=== PATIENT | female | born 1955 | race Caucasian/White ===

== ENCOUNTER 2016-06-24 11:56 | Emergency (ER) | payer SELFPAY ==
[2016-06-24] MEDS ORDERED: ASPIRIN 81 MG TABLET, CHEWABLE PO ONE (12:03)
--- NOTE | 2016-06-24 12:03 | ER Document Report ---
ED Medical Screen (RME) - General Stated Complaint: CHEST PAIN, DIZZINESS Time seen by provider: 12:00 Mode of Arrival: Ambulatory Information source: Patient Notes: 60 yo female presents to ed for dizziness since am and chest pain. Denies HTN BP 174/101. I have greeted and performed a rapid initial assessment of this patient. A comprehensive ED assessment and evaluation of the patient, analysis of test results and completion of medical decision making process will be conducted by an additional ED providers. - Related Data Allergies/Adverse Reactions: No Known Allergies Allergy (Unverified 06/24/16 11:59)
[2016-06-24 12:35] LABS: ABSOLUTE BASOPHILS # (AUTO) 0.1 10^3/uL (0.0-0.2); ABSOLUTE EOSINOPHILS # (AUTO) 0.1 10^3/uL (0.0-0.6); ABSOLUTE LYMPHOCYTES (AUTO) 2.4 10^3/uL (0.5-4.7); ABSOLUTE NEUT (AUTO) 8.4 10^3/uL (1.7-8.2); BASOPHILS % (AUTO) 0.6 % (0-2); EOSINOPHILS % (AUTO) 0.9 % (0-6); HEMATOCRIT 44.2 % (36.0-47.0); HEMOGLOBIN 14.3 g/dL (12.0-15.5); HGB HCT DIFFERENCE -1.3; LYMPHOCYTES % (AUTO) 19.9 % (13-45); MEAN CORPUSCULAR HEMOGLOBIN 26.7 pg (27.0-33.4); MEAN CORPUSCULAR HGB CONC 32.4 g/dL (32.0-36.0); MEAN CORPUSCULAR VOLUME 82 fl (80-97); MONOCYTES % (AUTO) 8.5 % (3-13); RED BLOOD COUNT 5.37 10^6/uL (3.72-5.28); RED CELL DISTRIBUTION WIDTH 14.2 % (11.5-14.0); SEGMENTED NEUTROPHILS % (AUTO) 70.1 % (42-78)
[2016-06-24 12:54] LABS: ALANINE AMINOTRANSFERASE 35 U/L (9-52); ALBUMIN 4.2 g/dL (3.5-5.0); ALKALINE PHOSPHATASE 84 U/L (38-126); ANION GAP 11 (5-19); ASPARTATE AMINO TRANSFERASE 21 U/L (14-36); BILIRUBIN,TOTAL 0.6 mg/dL (0.2-1.3); BLOOD UREA NITROGEN 14 mg/dL (7-20); CALCIUM 9.7 mg/dL (8.4-10.2); CARBON DIOXIDE 28 mmol/L (22-30); CHLORIDE 104 mmol/L (98-107); CREATINE KINASE 52 U/L (30-135); CREATININE RESULT 0.67 mg/dL (0.52-1.25); GLUCOSE 120 mg/dL (75-110); MAGNESIUM 2.1 mg/dL (1.6-2.3); POTASSIUM 3.8 mmol/L (3.6-5.0); SODIUM 142.9 mmol/L (137-145); TOTAL PROTEIN 7.5 g/dL (6.3-8.2)
[2016-06-24 13:07] LABS: CREATINE KINASE MB 1.35 ng/mL (<4.55)
[2016-06-24 13:11] LABS: TROPONIN I < 0.012 ng/mL
--- NOTE | 2016-06-24 15:47 | ER Document Report ---
ED General - General Chief Complaint: Chest Pain > 30 Stated Complaint: CHEST PAIN, DIZZINESS Mode of Arrival: Ambulatory Notes: The patient is a 60-year-old female, past medical history hypertension, smoking , presents with 3 weeks of anterior chest pain when she coughs, rhinorrhea and 1 day of nausea. Her had similar symptoms. She did not get flu shot this year. She vomited once this morning. She took her blood pressure was 180/ 100 before vomiting. She is to take blood pressure medications, but stopped after she lost her insurance and does not her primary care physician. She denies back pain, shortness of breath, current chest pain, abdominal pain, fevers, numbness, tingling or blurry vision. TRAVEL OUTSIDE OF THE [place] IN LAST 30 DAYS: No - Related Data Allergies/Adverse Reactions: No Known Allergies Allergy (Unverified 06/24/16 11:59) Past Medical History - General Information source: Patient - Social History Smoking Status: Current Every Day Smoker Chew tobacco use (# tins/day): No Frequency of alcohol use: None Drug Abuse: None Family History: Reviewed & Not Pertinent Patient has suicidal ideation: No Patient has homicidal ideation: No Renal/ Medical History: Denies: Hx Peritoneal Dialysis Review of Systems - Review of Systems Notes: REVIEW OF SYSTEMS: CONSTITUTIONAL: -fevers, -chills EENT: -eye pain, -difficulty swallowing, -nasal congestion CARDIOVASCULAR: +chest pain, -syncope. RESPIRATORY: +cough, -SOB GASTROINTESTINAL: -abdominal pain, -nausea, -vomiting, -diarrhea GENITOURINARY: -dysuria, -hematuria MUSCULOSKELETAL: -back pain, -neck pain SKIN: -rash or skin lesions. HEMATOLOGIC: -easy bruising or bleeding. LYMPHATIC: -swollen, enlarged glands. NEUROLOGICAL: -altered mental status or loss of consciousness, -headache, - neurologic symptoms PSYCHIATRIC: -anxiety, -depression. ALL OTHER SYSTEMS REVIEWED AND NEGATIVE. Physical Exam - Vital signs Vitals: Temp Pulse Resp BP Pulse Ox 97.5 F 100 14 174/101 H 96 06/24/16 12:01 06/24/16 12:01 06/24/16 12:01 06/24/16 12:06/24/16 12:01 - Notes Notes: PHYSICAL EXAMINATION: GENERAL: Well-appearing, well-nourished and in no acute distress. HEAD: Atraumatic, normocephalic. EYES: Pupils equal round and reactive to light, extraocular movements intact, sclera anicteric, conjunctiva are normal. ENT: nares patent, oropharynx clear without exudates. Moist mucous membranes. NECK: Normal range of motion, supple without lymphadenopathy LUNGS: Breath sounds clear to auscultation bilaterally and equal. No wheezes rales or rhonchi. HEART: Regular rate and rhythm without murmurs ABDOMEN: Soft, nontender, normoactive bowel sounds. No guarding, no rebound. No masses appreciated. EXTREMITIES: Normal range of motion, no pitting or edema. No cyanosis. NEUROLOGICAL: Cranial nerves grossly intact. Normal speech, normal gait. Normal sensory, motor, and reflex exams. PSYCH: Normal mood, normal affect. SKIN: Warm, Dry, normal turgor, no rashes or lesions noted. Course - Re-evaluation Re-evalutation: Patient appears well. Her blood pressure decreased to 150/100 while in the emergency room. Since she does not have a primary care physician and has not been on her hydrochlorothiazide, will restart her hydrochlorothiazide and provide her with follow-up at the health clinic. She has a HEART score of 3 and is safe for outpatient workup of her chest pain when she coughs. Patient says she only drinks Mountain Dew and sweet tea. After drinking 2 large water bottles in the ER, she is not feeling lightheaded. Told her to continue to drink only water. Considered ACS, PE and aortic dissection, but unlikely at this time. Slight leukocytosis may be from vomiting earlier in the day. No signs of infection at this time. Will discharge home with follow-up at health clinic. Given strict return precautions and she understands. - Vital Signs Vital signs: Temp Pulse Resp BP Pulse Ox 97.5 F 100 20 174/101 H 96 06/24/16 12:01 06/24/16 12:01 06/24/16 16:02 06/24/16 12:01 06/24/16 12:01 - Laboratory Result Diagrams: 06/24/16 12:15 06/24/16 12:15 Laboratory results interpreted by me: 06/24/16 06/24/16 12:15 12:15 WBC 12.0 H RBC 5.37 H MCH 26.7 L RDW 14.2 H Absolute Neutrophils 8.4 H Glucose 120 H - Diagnostic Test Radiology reviewed: Image reviewed, Reports reviewed Radiology results interpreted by me: CXR: NAD - EKG Interpretation by Me EKG shows normal: Sinus rhythm, [place], Intervals, QRS Complexes, ST-T Waves Discharge - Discharge Clinical Impression: URI (upper respiratory infection) Qualifiers: URI type: unspecified viral URI Qualified Code(s): J06.9 - Acute upper respiratory infection, unspecified Chest pain Qualifiers: Chest pain type: unspecified Qualified Code(s): R07.9 - Chest pain, unspecified Disposition: HOME, SELF-CARE Additional Instructions: CHEST PAIN OF UNCLEAR CAUSE: The exact cause of your chest pain isn't clear. Fortunately, there is no evidence of a dangerous medical condition. Further testing may be required to find the source of the pain. Most often, we find that this pain is coming from the chest wall -- the muscles or rib joints in the chest. But chest pain can come from the lung and lung lining, the esophagus, the heart valves or heart lining, and even the stomach or gallbladder. Rest. Eat lightly until the pain is gone. We may prescribe medicine for pain and inflammation. You should call the physician immediately if the pain radiates to the shoulder, jaw or arms; if you start to run a fever or develop a cough; or if you develop shortness of breath, or other new or alarming symptoms. NORMAL EXAM AND WORKUP: At this time, your examination and workup show no significant abnormality. No significant abnormal physical findings were noted. All laboratory, EKG, and imaging (x-ray, CT scans, ultrasound) studies that were ordered show no significant abnormality. Although your examination and all studies that were ordered showed no significant abnormal finding, there are no examinations and no studies that are 100% accurate. There is always the possibility that some abnormality could exist and not be detected with physical examination or within the limits and capabilities of laboratory and other studies. You should return or follow up as you were instructed on your visit today for further evaluation if your symptoms do not resolve. CHEST WALL PAIN: Your chest pain may be coming from the chest wall. This is often caused by straining the muscles or joints in the chest during physical activity, direct trauma, coughing, or vigorous vomiting. Persons with arthritis are especially prone to this type of pain, due to inflammation of the cartilage joints near the breast bone. Occasionally, no cause can be found. Rest from strenuous physical activity. This kind of chest pain is usually made worse by movement of the chest. Depending on the symptoms, we may prescribe medicine for pain, muscle relaxation, and antiinflammatory effects. If the pain is new, and seems to be due to muscle strain, cold packs can help. Otherwise, apply gentle warmth to the painful area for 15 minutes every hour or two. You should call contact the doctor immediately if things change. Further evaluation is needed if you develop a fever or cough, if the nature of the pain changes, or if you become short of breath. ANGINA EPISODE: Your physician has diagnosed the pain you experienced as an episode of angina. Angina occurs when a portion of the heart muscle temporarily lacks oxygen. It does not cause any permanent heart damage, but serves as a warning. Hospitalization is not necessary now. Evaluation of your cardiac condition , and medical therapy for angina will be necessary. It's important you be sure to keep all appointments and take medication exactly as prescribed. Angina is usually treated with a type of "nitrate" medication. This is available as ointment, pills, or sublingual (under the tongue) tablets. Depending on your clinical situation, other medications may be added to help control angina. These may include beta blockers or calcium blockers. If episodes of angina are occurring with increased frequency, or if chest pain lasts longer than 15 minutes or does not respond to nitroglycerin, you must seek emergency medical care immediately. ACID REFLUX DISEASE (GERD): Gastro-Esophageal Reflux Disease (GERD) is caused by stomach acid refluxing back up into the esophagus. The valve at the end of the esophagus may be weak. This is common in persons with a hiatal hernia. GERD symptoms can include indigestion, chest pain, heartburn, or food "sticking." Certain foods, alcohol, and aspirin can make GERD worse. Treatment depends on the severity. Usually, antacids or acid-suppressing medicines are used. When the esophagus is acutely inflamed, the physician will often prescribe membrane-protective drugs such as Carafate. Some patients benefit from medication such as Reglan that tightens the valve at the top of the stomach. Avoid those foods that bring on your symptoms. For many people, these foods are coffee, chocolate, onions, garlic, and carbonated drinks. Don't use alcohol, aspirin, caffeine, or tobacco. Don't eat late at night -- within 4 hours of bedtime. Don't over-eat. If necessary, elevate the head of your bed about 4 inches so that stomach acid will not roll up into your esophagus. Call the doctor if you develop severe chest pain, inability to swallow fluids, fever, or worsening symptoms. ASPIRIN: Aspirin has been shown to have a beneficial effect on blood circulation by reducing the clotting effect of platelets in the blood. These beneficial effects can be achieved by taking just a single baby (81 mg) aspirin a day. It is recommended that any person over the age of forty take a single baby aspirin every day for heart and brain circulation, unless you are allergic to aspirin or have some significant bleeding disorder. It is strongly recommended that people who have proven cardiac or blood circulation disturbances should take a baby aspirin every day. NITRATES: Nitroglycerin and related longer-acting nitrate medications are used to prevent or treat attacks of angina. These medicines dilate blood vessels, decreasing the work of the heart, and improving its supply of oxygen. Many different forms are available, including sublingual tablets (used under the tongue), sprays, skin patches, and long-acting pills. If the particular form of medication you have been given is not working well for you, contact your doctor. Long-acting forms: Take exactly as prescribed. Sudden stopping of medication can provoke increased attacks. Sublingual tabs or spray: A headache will usually occur with use. Sit or lie while waiting for the pain to go away. If angina doesn't respond to three doses (five minutes apart), call for emergency assistance. ANTACID THERAPY: You have been instructed to start antacid therapy. Antacids directly neutralize stomach acid. This is useful for acid irritation of the esophagus, gastritis, and ulcers. You should take two tablespoons of antacid one hour after each meal and three hours after each meal. If you are not eating, take the antacid every two hours. If you are using a concentrate (such as Maalox TC), use only one tablespoon. Many antacids affect the bowels. The most common problem is diarrhea. In this case, a pure aluminum hydroxide antacid (such as AlternaGel) can be substituted for some or all doses. If the problem is constipation, add a teaspoon of Milk of Magnesia to each dose. Call the doctor if you experience continued diarrhea or constipation, or if you develop lightheadedness, bloody stool or vomitus, severe abdominal pain, or black stool. PRILOSEC (ACID PUMP INHIBITOR): Prilosec (omeprazole) is an acid-pump inhibitor. It blocks the secretion of hydrogen ions in the acid-producing cells of the stomach. Prilosec keeps your stomach from making acid. Take all medication as prescribed, even after the pain is gone. Regular antacids may be added as needed if you have symptoms while taking this medicine. There are usually no side effects from this medication. Contact your doctor if there is fever, rash, yellow skin color, increasing abdominal pain, weakness, or unusual bruising. Return at once if you develop lightheadedness, black or bloody stool, or bloody vomitus. FOLLOW-UP CARE: If you have been referred to a physician for follow-up care, call the physician s office for an appointment as you were instructed or within the next two days. If you experience worsening or a significant change in your symptoms, notify the physician immediately or return to the Emergency Department at any time for re-evaluation. INFLUENZA: The physician feels that you have influenza -- the "flu". Influenza is an infection caused by a virus. Symptoms include generalized aching, fever, headache, dry cough, and fatigue. Some patients with the flu also have nausea, vomiting, and diarrhea. The fever and aches usually last two to four days, with the cough persisting another one to two weeks. Treatment of the flu, for the most part, is simply treatment of symptoms. Rest, drink plenty of fluids, and use acetaminophen for fever and aches. Do not take aspirin. There is an anti-viral medication, called Tamiflu, which may help in "type A" flu, but it's not helpful in every case of flu, and only works if started within the first 24 - 48 hours of the start of symptoms. The physician will determine whether this medication can help you. To prevent spread of the virus, use good handwashing. Shared toys should be cleaned with disinfectant. Clean the toilets, sinks, and counter surfaces in bathrooms. Launder clothing in hot water. What are conditions that should receive medical attention? The development of difficulty breathing. Lip color changes to blue or purple. Persistent vomiting and unable to keep liquids down with signs of dehydration such as: dizziness when standing, unable to urinate, or if child/infant is crying no tears are noticed. Is less responsive than normal or becomes confused. How do I decrease the spread of flu in my home? Taking care of the sick patient at home: Keep the sick person in a room separate from the common areas of the house. Keep the "sickroom" door closed. If the person with the flu needs to leave the home, they should cover their nose/mouth when coughing or sneezing and wear a disposable (surgical) mask if available. These masks may be available at your local pharmacy, medical supply and hardware store. If the sick person is in common areas of the house, have them wear a surgical mask. If possible, have the sick person use a separate bathroom that should be cleaned daily with a household disinfectant. If you are the caregiver: Avoid being face to face with the sick adult person as much as possible. Try to stay at least 6 feet away and wear a disposable surgical mask when possible. When holding small children who are sick, place their chin on your shoulder so that they will not cough in your face. Wash your hands after you touch the sick person or handle their tissues and laundry. Wear a mask if you leave home, as you may be infected from taking care of someone and not know it yet. Watch yourself and others in the home for flu symptoms and contact your doctor if symptoms occur. NOTE: Antiviral medication used to reduce the symptoms of the flu works only if taken within 48 hours, and best within 24 hours of symptom onset. Household Cleaning, laundry and waste disposal: Tissues and other disposable items used by the sick person should be thrown away in the trash. Wash your hands after touching these used items. No special waste disposal is required. Keep surfaces (especially bedside tables, bathroom surfaces, and toys for children) clean by wiping them down with a safe household disinfectant according to the directions on the product label. Per Center for Disease Control advice, most people will not receive testing to confirm flu. Also based on the person's health history and onset of symptoms, not all patients will receive prescriptions for antiviral medications. If you have questions related to this, please ask your healthcare provider. For more information, you can call the Centers for Disease Control and Prevention (CDC) Hotline at 5-976-RBU-INFO This line is available in German and Persian, 24 hours a day, 7 days a week. Or www.[employer].sli.do or www.cdc.gov Flu-Like Illness Home Instructions: The influenza virus infection can cause a wide rage of symptoms, including: Fever, cough, sore throat, body aches, headaches, chills, fatigue, with some patients reporting diarrhea and vomiting Like seasonal influenza A, H1N1 ("swine flu")in humans can vary in severity from mild to severe Severe illness with pneumonia, respiratory failure and even is possible Certain groups might be more likely to develop a severe illness from H1N1 infection. Sometimes bacterial infections may occur at the same time as or after infection with influenza viruses and lead to pneumonias, ear infections, or sinus infections. How Flu Spreads The main way that influenza viruses spread is through respiratory droplets of coughs and sneezes. This can happen when someone with the infection coughs or sneezes and the particles fly through the air and land on other people and surfaces. If the person covers their mouth and nose with their hand but does not wash their hands immediately, then these germs are passed onto the next object that they touch. People with Influenza A or suspected H1N1 (swine flu) who are cared for at home should: Check with their doctor about any special care that they might need if they are or have a health condition such as diabetes, heart disease, asthma or emphysema. Also, limit caregiver to one (if possible). women or those with chronic health conditions should not take care of the flu patient unless necessary. Check with their doctor about whether or not medications are needed that may lessen the symptoms of the flu. Stay at home until 24 hours fever free without the use of fever reducing medication. Get plenty of rest and avoid other healthy people in your home. Drink plenty of clear liquids to keep from getting dehydrated. Take medications like Tylenol (Acetaminophen), Advil/Motrin/Nuprin ( Ibuprofen) or Aleve (Naproxen) for fevers and aches. All children under the age of 18 years of age should not take aspirin or products containing aspirin (e.g. Pepto Bismol), as this can cause a rare serious illness called Tim Syndrome. Over the counter medications for flu and colds may help, but it is very important to follow the package directions. Remember that the medicine may help the symptoms, but it will not help prevent others from getting sick if they are around you. Cover coughs and sneezes using your bent arm. Clean hands with soap and water or an alcohol-based hand rub often, especially after using tissues to cough or sneeze. Encourage hand washing frequently for all people living in the home! The sick person should not have visitors other than caregivers. Encourage concerned loved ones to call instead of visit. Avoid close contact with others-do not go to work or school while sick. USE OF ACETAMINOPHEN (Tylenol): Acetaminophen may be taken for pain relief or fever control. It's much safer than aspirin, offering a wider range of "safe" dosages. It is safe during . Some brand names are Tylenol, Panadol, Datril, Anacin 3, Tempra, and Liquiprin. Acetaminophen can be repeated every four hours. The following are maximum recommended dosages: WEIGHT Dose Drops Elixir Chewable( 80mg) (LBS.) drprs=droppers tsp=teaspoon 6 40 mg 0.4 ml (1/2) 6-11 80 mg 0.8 ml (full) tsp 1 tab 12-16 120 mg 1 1/2 drprs 3/4 tsp 1 1/2 tabs 17-23 160 mg 2 drprs 1 tsp 2 tabs 24-30 240 mg 3 drprs 1 1/2 tsp 3 tabs 30-35 320 mg 2 tsp 4 tabs 36-41 360 mg 2 1/4 tsp 4 1/2 tabs 42-47 400 mg 2 1/2 tsp 5 tabs 48-53 480 mg 3 tsp 6 tabs 54-59 520 mg 3 1/4 tsp 6 1/2 tabs 60-64 560 mg 3 1/2 tsp 7 tabs 65-70 600 mg 3 3/4 tsp 7 1/2 tabs 71-76 640 mg 4 tsp 8 tabs 77-82 720 mg 4 1/2 tsp 9 tabs 83-88 800 mg 5 tsp 10 tabs >89 pounds or adults 650 mg to 900 mg Acetaminophen can be repeated every four hours. Maximum dose not to exceed 4000 mg a day. These maximum recommended dosages are slightly higher than the dosages written on the product container, but these dosages are very safe and below the toxic dosage for acetaminophen. ORAL NARCOTIC MEDICATION: You have been given a prescription for pain control. This medication is a narcotic. It's best taken with food, as nausea can result if taken on an empty stomach. Don't operate machinery or drive within six hours of taking this medication. Do not combine this medicine with alcohol, or with any medication which can cause sedation (such as cold tablets or sleeping pills) unless you get permission from the physician. Narcotics tend to cause constipation. If possible, drink plenty of fluids and eat a diet high in fiber and fruits. Please be aware that prescription narcotics also have the potential for abuse. People become addicted to these medications because of the general sense of wellbeing that they induce. This feeling along with a significant reduction in tension, anxiety, and aggression provides a stimulating seductive quality to these drugs. Once your pain is under control, we encourage you to discard your unused narcotics. FOLLOW-UP CARE: If you have been referred to a physician for follow-up care, call the physician s office for an appointment as you were instructed or within the next two days. If you experience worsening or a significant change in your symptoms, notify the physician immediately or return to the Emergency Department at any time for re-evaluation. HIGH BLOOD PRESSURE REQUIRING TREATMENT: Your blood pressure is high. This is called "hypertension." Today's reading was 151/101 (normal is less than 140/90). Your history and exam suggest that this is not a temporary problem. You need treatment of your blood pressure. If left untreated, high blood pressure greatly increases your risk of heart attack and stroke. Please don't ignore this problem. If you have blood pressure medicine but aren't using it regularly, start taking it again. Some simple things you can do to help are: Get some aerobic exercise for at least 20 minutes on a daily basis. (See your doctor before beginning any new exercise program.) Eat a low-fat diet. Lose excess weight. Avoid salty foods and avoid adding salt to any of the foods you eat. Avoid diet pills, decongestants, "energizing" herbs, and other medicines that elevate blood pressure. There are many different medicines that treat blood pressure. If your medication causes unpleasant side effects, call your doctor. There are others you can try. Treating hypertension is a life-long investment in your health. HYDROCHLOROTHIAZIDE: Hydrochlorothiazide is a diuretic medication. Diuretics are often called "water pills." The medicine flushes excess salt and water from the body. Diuretics are used for fluid retention (such as heart failure, cirrhosis, or lung disease) and for blood pressure control. Often hydrochlorothiazide is combined with other medicines in the same pill. Most patients prefer to take the medicine in the morning. Hydrochlorothiazide makes extra urine, which can be a problem if you take the pill at night. Diuretics make you lose potassium. Sometimes a good diet with plenty of fruit is enough to replace it. Sometimes a potassium supplement is necessary. Or, hydrochlorothiazide may be combined with medicines that prevent potassium loss. We usually recommend a blood potassium test in a few weeks. Contact your doctor if you develop extreme fatigue, muscle weakness, lethargy, confusion, or palpitations. FOLLOW-UP CARE: If you have been referred to a physician for follow-up care, call the physician s office for an appointment as you were instructed or within the next two days. If you experience worsening or a significant change in your symptoms, notify the physician immediately or return to the Emergency Department at any time for re-evaluation. Prescriptions: Hydrochlorothiazide 25 mg PO DAILY #30 tablet Referrals: JANES WERNER MD [ACTIVE STAFF] - Follow up as needed
[2016-06-24 16:55] VITALS: BP 149/94
--- NOTE | 2016-06-25 05:32 | EKG REPORT ---
SEVERITY:- ABNORMAL ECG - SINUS RHYTHM LEFT AXIS DEVIATION LEFT VENTRICULAR HYPERTROPHY BORDERLINE PROLONGED QT INTERVAL : Confirmed by: Genesis Tucker MD 25-Jun-2016 05:32:25
== END 2016-06-24 16:54 | disposition home or self-care (01) ==
LOC: ER 11:56
DX: J06.9 Acute upper respiratory infection, unspecified (principal); R07.9 Chest pain, unspecified; R42 Dizziness and giddiness; R11.0 Nausea; F17.200 Nicotine dependence, unspecified, uncomplicated; I10 Essential (primary) hypertension
CPT/HCPCS: 36415; 71020; 80053; 82550; 82553; 83735; 84484; 85025; 93005; 93010; 99285

== ENCOUNTER 2019-10-04 07:25 | Day surgery (SDC) | payer MEDICAID ==
[2019-10-01 12:17] LABS: HEMATOCRIT 41.6 % (36.0-47.0); HEMOGLOBIN 14.1 g/dL (12.0-15.5); MEAN CORPUSCULAR HEMOGLOBIN 28.6 pg (27.0-33.4); MEAN CORPUSCULAR HGB CONC 33.9 g/dL (32.0-36.0); MEAN CORPUSCULAR VOLUME 85 fl (80-97); PLATELET COUNT 386 10^3/uL (150-450); RED BLOOD COUNT 4.92 10^6/uL (3.72-5.28); RED CELL DISTRIBUTION WIDTH 13.9 % (11.5-14.0); WHITE BLOOD COUNT 10.7 10^3/uL (4.0-10.5)
[2019-10-01 12:45] LABS: ANION GAP 11 (5-19); BLOOD UREA NITROGEN 10 mg/dL (7-20); CALCIUM 9.7 mg/dL (8.4-10.2); CARBON DIOXIDE 26 mmol/L (22-30); CHLORIDE 97 mmol/L (98-107); GLUCOSE 128 mg/dL (75-110); POTASSIUM 4.2 mmol/L (3.6-5.0)
--- NOTE | 2019-10-02 00:23 | EKG REPORT ---
SEVERITY:- OTHERWISE NORMAL ECG - SINUS RHYTHM LEFT AXIS DEVIATION : Confirmed by: Alexey Martinez 02-Oct-2019 00:22:58
[2019-10-04] MEDS ORDERED: PROPOFOL INJ 200 MG/20 ML VIAL IV ONE (08:33)
--- NOTE | 2019-10-04 10:33 | Operative Report ---
Operative Report DATE OF SURGERY: 10/04/19 Operative Report: The risk, benefits and alternatives of the procedure including the risk of bleeding, perforation requiring surgery have been explained to the patient in detail and informed consent has been obtained. The patient is taken back to the endoscopy suite placed in the left, lateral decubital position. Timeout was called. Propofol medication is administered. Rectal examination is done which did not reveal any masses, tears or fissures. An Olympus videoscope was introduced into the patient's rectum. Scope was then carefully advanced all the way to the cecum cecum was identified by the usual anatomical landmarks including the ileocecal valve as well as the appendiceal office. Photodocumentation is obtained. Scope was then sequentially pulled back via the various segments of the colon including the ascending colon, hepatic fracture, transverse colon, splenic flexure, descending colon and finally into the rectosigmoid portions of the colon. Retroflexion maneuver is performed. PREOPERATIVE DIAGNOSIS: History of polyps POSTOPERATIVE DIAGNOSIS: Right colon inflammation status post biopsy. Large sigmoid polyp removed via snare polypectomy and retrieved. Rectal polyp seen best in the retroflexed position removed via snare polypectomy and retrieved. Internal hemorrhoids OPERATION: Colonoscopy with snare polypectomy colonoscopy with biopsy SURGEON: BERE WINSTON ANESTHESIA: LMAC TISSUE REMOVED OR ALTERED: As noted above. COMPLICATIONS: None. ESTIMATED BLOOD LOSS: None. INTRAOPERATIVE FINDINGS: As noted above. PROCEDURE: Patient tolerated the procedure well. No immediate postprocedure complications are noted. Patient is discharged in good condition. Discharge date 10/04/2019. Discharge diet: Regular. Discharge activity: Regular. 2 to 3-week follow-up to discuss findings. Patient is instructed call the office or proceed to the emergency room should there be any further problems or questions. Wait on the pathology. 3 to 5-year surveillance colonoscopy.
[2019-10-04 10:39] VITALS: BP 128/67
== END 2019-10-04 10:45 | disposition home or self-care (01) ==
LOC: END 07:25
PROVIDERS: ATTEND Internal Medicine Gastroenterology
DX: Z12.11 Encounter for screening for malignant neoplasm of colon (principal); K52.9 Noninfective gastroenteritis and colitis, unspecified; D12.5 Benign neoplasm of sigmoid colon; K63.5 Polyp of colon; K64.8 Other hemorrhoids; Z86.010 Personal history of colon polyps; I10 Essential (primary) hypertension; F17.210 Nicotine dependence, cigarettes, uncomplicated; Z79.899 Other long term (current) drug therapy
CPT/HCPCS: 45385; 93005; 36415; 85027; 87635; 80048; 88305 ×2; 93010; J2704; C9803; 811